=== PATIENT | female | born 1945 | race Caucasian/White ===

== ENCOUNTER 2017-05-15 05:56 | Inpatient (IN) | payer OTHER ==
[~2017-05-15] VITALS: Ht 162.6 cm; Wt 61.0 kg
[~2017-05-15 05:56] MED LIST: ALPR0.25 PO
[2017-05-15] MEDS ORDERED: SODIUM CHLORIDE 0.9% 1,000 ML IV ONE (06:03)
[2017-05-15 07:19] LABS: ASPARTATE AMINO TRANSFERASE 18 U/L (15-37); BLOOD UREA NITROGEN 13 mg/dL (7-18)
[2017-05-15 10:47] VITALS: BP 146/84
[2017-05-15] MEDS ORDERED: ACETAMINOPHEN 325 MG TABLET PO PRN ×2 (12:30→13:00)
[2017-05-15] MEDS ORDERED: POLYETHYLENE GLYCOL 17 GM PACKET PO PRN (12:30)
[2017-05-15] MEDS ORDERED: BISACODYL 10 MG SUPP PR PRN ×4 (12:30→19:30)
[2017-05-15] MEDS ORDERED: DOCUSATE 100 MG CAPSULE PO PRN ×2 (12:30→19:30)
[2017-05-15] MEDS ORDERED: PROMETHAZINE 25 MG/ML, 1ML IM PRN (12:30)
[2017-05-15] MEDS ORDERED: ONDANSETRON 2MG/ML, 2ML IVPush PRN ×2 (12:30→13:00)
[2017-05-15] MEDS ORDERED: morphine SULFATE 10 MG/ML, 1ML IVPush PRN (12:30)
[2017-05-15] MEDS ORDERED: LABETALOL 5MG/ML, 20ML IV PRN (13:00)
[2017-05-15] MEDS ORDERED: hydrALAzine 20 MG/ML, 1ML IV PRN ×2 (13:00→19:30)
[2017-05-15] MEDS ORDERED: OXYcodone 5 MG/5 ML ORAL.SOL UDC PO PRN (13:00)
[2017-05-15] MEDS ORDERED: HYDROmorphone 1 MG/ML, 1ML IV PRN (13:00)
[2017-05-15] MEDS ORDERED: ENOXAPARIN 40 MG/0.4 ML SQ SCH (13:00)
[2017-05-15] MEDS ORDERED: METOPROLOL 1 MG/ML, 5ML IV PRN (13:00)
[2017-05-15] MEDS ORDERED: FENTANYL PF 100 MCG/2ML IV PRN (13:00)
[2017-05-15] MEDS ORDERED: EPHEDRINE 50 MG/ML, 1ML IVPush PRN (13:00)
[2017-05-15] MEDS ORDERED: ALBUTEROL SULFATE 2.5 MG/3 ML NPPB PRN (13:00)
[2017-05-15] MEDS ORDERED: VANCOMYCIN 1,000 MG ONE (13:26)
[2017-05-15] MEDS ORDERED: KETOROLAC 60 MG/2 ML ONE (13:26)
[2017-05-15] MEDS ORDERED: ROPIvacaine/PF 0.2%, 20 ML ONE (13:27)
[2017-05-15] MEDS ORDERED: TRANEXAMIC ACID 100 MG/ML, 10ML ONE (13:27)
[2017-05-15] MEDS ORDERED: EPINEPHRINE 1 MG/ML, 1ML ONE (13:27)
[2017-05-15] MEDS ORDERED: SODIUM CHLORIDE 0.9% 0 ML ONE (13:27)
[2017-05-15] MEDS ORDERED: ALBUTEROL/IPRATROPIUM 2.5MG/0.5MG, 3 ML NPPB PRN (13:30)
[2017-05-15] MEDS ORDERED: ROPIvacaine/PF 0.5%, 30 ML ONE (13:41)
[2017-05-15] MEDS ORDERED: PROPOFOL 10 MG/ML, 20ML ONE (14:04)
[2017-05-15] MEDS ORDERED: ONDANSETRON 2MG/ML, 2ML ONE (14:04)
[2017-05-15] MEDS ORDERED: ROCURONIUM 10 MG/ML ONE (14:04)
[2017-05-15] MEDS ORDERED: NEOSTIGMINE 1 MG/ML, 10ML ONE (14:04)
[2017-05-15] MEDS ORDERED: CEFAZOLIN 1,000 MG ONE (14:04)
[2017-05-15] MEDS ORDERED: GLYCOPYRROLATE 0.2MG/1ML ONE (14:04)
[2017-05-15] MEDS ORDERED: FENTANYL PF 100 MCG/2ML ONE (14:22)
[2017-05-15] MEDS ORDERED: ALUMINUM/MAG/SIMETHICONE 30 ML UDC PO PRN (16:00)
[2017-05-15] MEDS ORDERED: SENNA/DOCUSATE TABLET PO PRN (16:00)
[2017-05-15] MEDS ORDERED: ALBUTEROL SULFATE 2.5 MG/3 ML ONE (16:00)
[2017-05-15] MEDS ORDERED: MAGNESIUM HYDROXIDE 8%, 30ML UDC PO PRN (16:00)
[2017-05-15] MEDS ORDERED: OXYcodone 5 MG/5 ML ORAL.SOL UDC ONE (16:05)
[2017-05-15 16:41] VITALS: BP 112/64
[2017-05-15 17:32] LABS: BLOOD UREA NITROGEN 11 mg/dL (7-18)
[2017-05-15] MEDS ORDERED: CLON-365 PO (17:50)
[2017-05-15 18:58] VITALS: BP 133/77
[2017-05-15] MEDS ORDERED: CEFAZOLIN PMX 1GM/50ML 50 ML IVPB SCH (20:00)
[2017-05-15] MEDS: HYDROcodone/APAP 5/325 TABLET PO PRN (20:20)
[2017-05-15] MEDS: DOCUSATE 100 MG CAPSULE PO SCH (20:20)
[2017-05-15] MEDS: NICOTINE 21 MG/24 HR PATCH.TD24 TD SCH (20:20)
[2017-05-15] MEDS: CEFAZOLIN PMX 1GM/50ML 50 ML IVPB SCH (22:56)
[2017-05-16 00:05] VITALS: BP 116/74
[2017-05-16] MEDS: HYDROcodone/APAP 5/325 TABLET PO PRN ×5 (00:31→22:08)
[2017-05-16 02:40] VITALS: BP 132/77
[2017-05-16] MEDS ORDERED: ALBUTEROL/IPRATROPIUM 2.5MG/0.5MG, 3 ML NPPB PRN (06:00)
[2017-05-16 06:02] LABS: ASPARTATE AMINO TRANSFERASE 17 U/L (15-37); BLOOD UREA NITROGEN 11 mg/dL (7-18)
[2017-05-16] MEDS: CEFAZOLIN PMX 1GM/50ML 50 ML IVPB SCH (06:17)
[2017-05-16] MEDS: ASPIRIN 325 MG TABLET EC PO SCH ×2 (06:17→17:22)
[2017-05-16 07:15] VITALS: BP 115/72
[2017-05-16] MEDS: MULTIVITAMIN 1 TABLET PO SCH (08:34)
[2017-05-16] MEDS: FOLIC ACID 1 MG TABLET PO SCH (08:35)
[2017-05-16] MEDS: DOCUSATE 100 MG CAPSULE PO SCH (08:35)
[2017-05-16] MEDS: THIAMINE 100MG TABLET PO SCH (08:35)
[2017-05-16] MEDS: SENNA/DOCUSATE TABLET PO SCH (08:36)
[2017-05-16 13:23] VITALS: BP 120/75
[2017-05-16 19:32] VITALS: BP 123/74
[2017-05-16] MEDS: NICOTINE 21 MG/24 HR PATCH.TD24 TD SCH (19:52)
[2017-05-17 01:36] VITALS: BP 150/85
[2017-05-17] MEDS: HYDROcodone/APAP 5/325 TABLET PO PRN ×4 (01:57→20:01)
[2017-05-17 05:07] LABS: BLOOD UREA NITROGEN 12 mg/dL (7-18)
[2017-05-17] MEDS: ASPIRIN 325 MG TABLET EC PO SCH ×2 (06:16→16:52)
[2017-05-17 07:45] VITALS: BP 118/73
[2017-05-17] MEDS: MULTIVITAMIN 1 TABLET PO SCH (09:38)
[2017-05-17] MEDS: THIAMINE 100MG TABLET PO SCH (09:38)
[2017-05-17] MEDS: SENNA/DOCUSATE TABLET PO SCH (09:38)
[2017-05-17] MEDS: FOLIC ACID 1 MG TABLET PO SCH (09:38)
[2017-05-17 13:25] VITALS: BP 121/74
[2017-05-17] MEDS: CEFTRIAXONE PMX 1GM/50ML 50 ML IV SCH (15:27)
[2017-05-17 18:49] VITALS: BP 126/77
[2017-05-17] MEDS: NICOTINE 21 MG/24 HR PATCH.TD24 TD SCH (20:01)
[2017-05-18 02:03] VITALS: BP 159/84
[2017-05-18] MEDS: ASPIRIN 325 MG TABLET EC PO SCH ×2 (04:59→18:11)
[2017-05-18] MEDS: HYDROcodone/APAP 5/325 TABLET PO PRN ×3 (05:06→22:15)
[2017-05-18 06:02] LABS: BLOOD UREA NITROGEN 11 mg/dL (7-18)
[2017-05-18 06:49] VITALS: BP 146/81
[2017-05-18] MEDS: MULTIVITAMIN 1 TABLET PO SCH (09:26)
[2017-05-18] MEDS: SENNA/DOCUSATE TABLET PO SCH (09:26)
[2017-05-18] MEDS: FOLIC ACID 1 MG TABLET PO SCH (09:26)
[2017-05-18] MEDS: THIAMINE 100MG TABLET PO SCH (09:27)
[2017-05-18 12:47] VITALS: BP 115/69
[2017-05-18] MEDS: CEFTRIAXONE PMX 1GM/50ML 50 ML IV SCH (13:32)
[2017-05-18] MEDS: POTASSIUM CHLORIDE 20 MEQ TAB.ER.PRT PO SCH (13:33)
[2017-05-18] MEDS ORDERED: ONDANSETRON ODT 4 MG PO PRN (15:00)
[2017-05-18 19:58] VITALS: BP 133/80
[2017-05-18] MEDS: NICOTINE 21 MG/24 HR PATCH.TD24 TD SCH (20:04)
[2017-05-18] MEDS: SULFAMETH./TRIMETHOPRIM DS 800MG/160MG TABLET PO SCH (21:13)
[2017-05-19 01:43] VITALS: BP 137/77
[2017-05-19] MEDS: HYDROcodone/APAP 5/325 TABLET PO PRN ×2 (05:13→21:15)
[2017-05-19] MEDS: ASPIRIN 325 MG TABLET EC PO SCH ×2 (05:13→17:20)
[2017-05-19 07:02] VITALS: BP 124/82
[2017-05-19] MEDS: SENNA/DOCUSATE TABLET PO SCH (09:35)
[2017-05-19] MEDS: THIAMINE 100MG TABLET PO SCH (09:35)
[2017-05-19] MEDS: POTASSIUM CHLORIDE 20 MEQ TAB.ER.PRT PO SCH (09:35)
[2017-05-19] MEDS: SULFAMETH./TRIMETHOPRIM DS 800MG/160MG TABLET PO SCH ×2 (09:36→21:14)
[2017-05-19] MEDS: MULTIVITAMIN 1 TABLET PO SCH (09:36)
[2017-05-19] MEDS: FOLIC ACID 1 MG TABLET PO SCH (09:37)
[2017-05-19 12:13] VITALS: BP 131/80
[2017-05-19] MEDS: NICOTINE 21 MG/24 HR PATCH.TD24 TD SCH (21:15)
[2017-05-19 21:39] VITALS: BP 119/73
[2017-05-20] MEDS: HYDROcodone/APAP 5/325 TABLET PO PRN (02:06)
[2017-05-20 03:19] VITALS: BP 143/79
[2017-05-20] MEDS: ASPIRIN 325 MG TABLET EC PO SCH (05:56)
[2017-05-20 08:12] VITALS: BP 146/85
[2017-05-20] MEDS: SULFAMETH./TRIMETHOPRIM DS 800MG/160MG TABLET PO SCH (10:08)
[2017-05-20] MEDS: MULTIVITAMIN 1 TABLET PO SCH (10:08)
[2017-05-20] MEDS: THIAMINE 100MG TABLET PO SCH (10:08)
[2017-05-20] MEDS: FOLIC ACID 1 MG TABLET PO SCH (10:08)
[2017-05-20] MEDS: SENNA/DOCUSATE TABLET PO SCH (10:08)
[2017-05-20] MEDS: POTASSIUM CHLORIDE 20 MEQ TAB.ER.PRT PO SCH (10:08)
[2017-05-20] MEDS ORDERED: POTA20TA6 PO (12:40)
[2017-05-20] MEDS ORDERED: ASPI-650 PO (12:40)
[2017-05-20] MEDS ORDERED: TRAM50TA2 PO (12:40)
[2017-05-20 13:30] VITALS: BP 145/77
== END 2017-05-20 15:00 | disposition home health service (06) | DRG 470 ==
LOC: ED 07:33 → EDIP 09:10 → 4NOR 10:44 → DCLOUNGE 05-20 14:17
PROVIDERS: ADMIT Hospitalist; ATTEND Family Medicine
PROC: 0SRS0JZ Replacement of Left Hip Joint, Femoral Surface with Synthetic Substitute, Open Approach (ICD-10-PCS; principal; 2017-05-15 13:30)
DX: S72.002A Fracture of unspecified part of neck of left femur, initial encounter for closed fracture (principal); E87.1 Hypo-osmolality and hyponatremia; D72.828 Other elevated white blood cell count; F17.200 Nicotine dependence, unspecified, uncomplicated; I08.2 Rheumatic disorders of both aortic and tricuspid valves; R33.9 Retention of urine, unspecified; J44.9 Chronic obstructive pulmonary disease, unspecified; W01.0XXA Fall on same level from slipping, tripping and stumbling without subsequent striking against object, initial encounter; Y93.89 Activity, other specified; Y92.89 Other specified places as the place of occurrence of the external cause; Y99.8 Other external cause status; Z98.51 Tubal ligation status; Z90.710 Acquired absence of both cervix and uterus; Z90.49 Acquired absence of other specified parts of digestive tract; Z98.49 Cataract extraction status, unspecified eye; Z79.899 Other long term (current) drug therapy; Z72.89 Other problems related to lifestyle; Z88.5 Allergy status to narcotic agent
CPT/HCPCS: 36415; 71010; 72170; 80048; 80053; 81001; 83735; 85025; 85610; 87086; 93005; 93306; 94640; 96360; C1713; J0171; J0690; J0696; J1885; J2405; J2704; J2710; J2795; J3010; J3370; J3490; Q0162; C1762; C1776; J7030

== ENCOUNTER 2017-07-02 05:48 | Emergency (ER) | payer OTHER ==
[~2017-07-02] VITALS: Ht 160 cm; Wt 62.0 kg
[~2017-07-02 05:48] MED LIST changes: +ASPI-650 PO; +CLON-365 PO; +POTA20TA6 PO; +TRAM50TA2 PO
[2017-07-02 09:43] VITALS: BP 120/56
== END 2017-07-02 09:44 | disposition home or self-care (01) ==
LOC: ED 06:07
DX: K59.00 Constipation, unspecified (principal); J44.9 Chronic obstructive pulmonary disease, unspecified; F17.210 Nicotine dependence, cigarettes, uncomplicated
CPT/HCPCS: 99284

== ENCOUNTER 2017-07-25 15:56 | Emergency (ER) | payer OTHER ==
[~2017-07-25] VITALS: Ht 160 cm; Wt 51.6 kg
[2017-07-25] MEDS ORDERED: SODIUM CHLORIDE 0.9% 1,000 ML IV ONE (16:09)
[2017-07-25] MEDS ORDERED: ALBUTEROL/IPRATROPIUM 2.5MG/0.5MG, 3 ML ONE (16:24)
[2017-07-25] MEDS ORDERED: methylPREDNISolone SOD SUCC 125 MG/2 ML IVP ONE (16:30)
[2017-07-25] MEDS ORDERED: SODIUM CHLORIDE FLUSH 10ML SYR IVF ONE (16:30)
[2017-07-25] MEDS ORDERED: ALBUTEROL/IPRATROPIUM 2.5MG/0.5MG, 3 ML NPPB ONE (16:30)
[2017-07-25 16:31] LABS: HEMATOCRIT 33.3 % (34.6-47.8); HEMOGLOBIN 11.2 g/dL (11.7-16.4); WHITE BLOOD COUNT 6.8 x10^3/uL (3.4-10)
[2017-07-25] MEDS ORDERED: methylPREDNISolone SOD SUCC 125 MG/2 ML ONE (16:34)
[2017-07-25 16:41] LABS: ASPARTATE AMINO TRANSFERASE 12 U/L (15-37); BLOOD UREA NITROGEN 18 mg/dL (7-18)
[2017-07-25 16:46] LABS: IS PT STATUS REG ER OR PRE ER? YES
[2017-07-25 17:11] VITALS: BP 124/68
[2017-07-25] MEDS ORDERED: HYDROcodone/APAP 5/325 TABLET ONE (17:21)
[2017-07-25] MEDS ORDERED: HYDROcodone/APAP 5/325 TABLET PO ONE (17:30)
== END 2017-07-25 17:37 | disposition home or self-care (01) ==
LOC: ED 17:31
DX: S22.41XA Multiple fractures of ribs, right side, initial encounter for closed fracture (principal); J44.1 Chronic obstructive pulmonary disease with (acute) exacerbation; W01.0XXA Fall on same level from slipping, tripping and stumbling without subsequent striking against object, initial encounter; Y93.89 Activity, other specified; Y92.89 Other specified places as the place of occurrence of the external cause; Y99.9 Unspecified external cause status
CPT/HCPCS: 36415; 71101; 80053; 83880; 84484; 85025; 87040; 94640; 96374; 99285; J2930; J7030; J7620